=== PATIENT | female | born 1930 | race Caucasian/White ===

== ENCOUNTER 2017-12-02 13:38 | Emergency (ER) | payer MEDICARE, OTHER, MEDICAID ==
[2017-12-02] MEDS ORDERED: Propofol 200 MG/20 ML SDV IV ONE (13:39)
[2017-12-02] MEDS ORDERED: fentaNYL 100 MCG/2 ML SDV IVPUSH ONE (14:04)
--- NOTE | 2017-12-02 14:39 | CR ---
Clinical history: 87-year-old female fracture/dislocation left shoulder ( post reduction image emerge ncy department). Interpretation: Single AP film demonstrates satisfactory reduction humeral head relative to the gleno id of the left scapula. (associated evidence of impacted but anatomically aligned subcapital fracture this single projection) No sign of post reduction A/C separation or other fracture left shoulder.
--- NOTE | 2017-12-02 14:51 | EDM.PDOC ---
<Gypsy Ahmadi - Last Filed: 12/02/17 15:59> ED HPI GENERAL MEDICAL PROBLEM - General Stated Complaint: DISLOCATION OF LEFT SHOULDER Time Seen by Provider: 12/02/17 13:45 Source of Information: Reports: Patient, Family, Halfway Records, RN, RN Notes Reviewed - History of Present Illness INITIAL COMMENTS - FREE TEXT/NARRATIVE: Iraida is an 87 yo F who presents to the ED from x-ray due to a fall at the group home. We were called per Dr Lin at the group home after images where obtained revealing a left anterior shoulder dislocation. Patient relates that she was getting up to the bathroom when she tripped and fell landing on right shoulder. Patient denies hitting her head. Denies neck pain, chest pain, shortness of breath, dizziness, abd pain or any other injuries. - Related Data Allergies Allergy/AdvReac Type Severity Reaction Status Date / Time hydrochlorothiazide AdvReac Unknown Insomnia Verified 01/10/16 09:52 [From Maxzide] Qebacks-Jkg-Aqo Reductase AdvReac Unknown Muscle Verified 01/10/16 09:52 Inhibitor Aches triamterene [From Maxzide] AdvReac Unknown Insomnia Verified 01/10/16 09:52 Home Meds: Home Meds Multivit with Calcium,Iron,Min [Essential Daily] 1 each PO DAILY 08/31/13 [ History] Ondansetron [Zofran] 8 mg PO Q8H PRN 08/31/13 [History] Aspirin [Low Dose Aspirin EC] 81 mg PO DAILY 05/04/14 [History] Furosemide [Lasix] 20 mg PO DAILY 04/06/15 [History] Warfarin [Coumadin] 4 mg PO Q48H 04/06/15 [History] Acetaminophen [Acetaminophen ER] 650 mg PO TID 01/10/16 [History] Cholecalciferol (Vitamin D3) [Vitamin D3] 1,000 unit PO DAILY 01/10/16 [History] Ciprofloxacin HCl [Cipro] 250 mg PO BID 01/10/16 [History] Doxepin [SINEquan] 10 mg PO BEDTIME 01/10/16 [History] Levothyroxine [Synthroid] 50 mcg PO ACBREAKFAST 01/10/16 [History] Pantoprazole [ProTONIX] 40 mg PO ACBREAKFAST 04/28/16 [History] Warfarin [Coumadin] 2 mg PO Q48H 01/10/16 [History] Bisacodyl [Dulcolax] 10 mg RECTAL DAILY PRN #5 supp 01/11/16 [Rx] Lactulose 10 gm PO DAILY #60 ml 01/11/16 [Rx] Past Medical History HEENT History: Reports: Impaired Vision Cardiovascular History: Reports: Afib, Blood Clots/VTE/DVT, High Cholesterol, Hypertension, Other (See Below) Other Cardiovascular History: vasovagal episode Other Respiratory History: pulmonary nodules Gastrointestinal History: Reports: Diverticulosis, Other (See Below) Other Gastrointestinal History: presbysophagus,diverticulitis Genitourinary History: Reports: None [employer] History: Reports: Musculoskeletal History: Reports: Osteoporosis Other Musculoskeletal History: trochanteric bursitis Neurological History: Reports: None, TIA Psychiatric History: Reports: None Endocrine/Metabolic History: Reports: Hypothyroidism, Obesity/BMI 30+, Osteoporosis Hematologic History: Reports: None Immunologic History: Reports: None Oncologic (Cancer) History: Reports: Breast Dermatologic History: Reports: None - Past Surgical History Female Surgical History: Reports: Hysterectomy, Mastectomy, Other (See Below) Oncologic Surgical History: Reports: Biopsy of Breast, Lumpectomy, Mastectomy Social & Family History - Family History Family Medical History: Noncontributory - Tobacco Use Smoking Status *Q: Never Smoker Second Hand Smoke Exposure: Yes - Alcohol Use Days Per Week of Alcohol Use: 0 - Recreational Drug Use Recreational Drug Use: No - Living Situation & Occupation Living situation: Reports: , with Spouse Occupation: Retired Review of Systems - Review of Systems Review Of Systems: ROS reveals no pertinent complaints other than HPI. ED EXAM, GENERAL - Physical Exam Exam: See Below Exam Limited By: No Limitations General Appearance: Alert, WD/WN, No Apparent Distress Eye Exam: Bilateral Eye: EOMI, PERRL Ears: Normal External Exam, Normal Canal, Hearing Grossly Normal, Normal TMs Ear Exam: Bilateral Ear: Auricle Normal, Canal Normal, TM normal Nose: Normal Inspection, Normal Mucosa, No Blood Throat/Mouth: Normal Inspection, Normal Lips, Normal Teeth, Normal Gums, Normal Oropharynx, Normal Voice, No Airway Compromise Head: Atraumatic, Normocephalic Neck: Normal Inspection, Supple, Non-Tender, Full Range of Motion Respiratory/Chest: No Respiratory Distress, Lungs Clear, Normal Breath Sounds, No Accessory Muscle Use, Chest Non-Tender Cardiovascular: Normal Peripheral Pulses, Regular Rate, Rhythm, No Edema, No Gallop, No JVD, No Murmur, No Rub Peripheral Pulses: 2+: Radial (R) GI/Abdominal: Normal Bowel Sounds, Soft, Non-Tender, No Organomegaly, No Distention, No Abnormal Bruit, No Mass (Female) Exam: Deferred Rectal (Female) Exam: Deferred Back Exam: Normal Inspection, Full Range of Motion, NT Extremities: Arm Pain (Patient has an obvious dislocation to left shoulder. Hand is discolored on arrival. Strong radial and ulnar pulses present. Mild numbness to fingers per patient report. ) Course - Orders/Labs/Meds Labs: Laboratory Tests 12/02/17 12/02/17 12/02/17 Range/Units 14:45 14:45 14:45 WBC 11.9 H (5.0-10.0) 10^3/uL RBC 4.13 L (4.2-5.4) 10^6/uL Hgb 12.4 (12.0-16.0) g/dL Hct 39.1 (37.0-47.0) % MCV 94.7 D (80-100) fL MCH 30.0 (27.0-34.0) pg MCHC 31.7 L (33.0-35.0) g/dL Plt Count 233 (150-450) 10^3/uL Neut % (Auto) 72.1 (42.2-75.2) % Lymph % (Auto) 19.1 L (20.5-50.1) % Davidson % (Auto) 8.3 H (2-8) % Eos % (Auto) 0.3 L (1.0-3.0) % Baso % (Auto) 0.2 (0.0-1.0) % PT 18.8 H D (9.0-12.0) SEC INR 1.9 H (0.9-1.2) Sodium 139 (135-145) mmol/L Potassium 3.6 (3.6-5.0) mmol/L Chloride 97 L (101-111) mmol/L Carbon Dioxide 33.0 H (21.0-31.0) mmol/L Anion Gap 12.6 BUN 22 H (7-18) mg/dL Creatinine 0.8 (0.6-1.3) mg/dL Est Cr Clr Drug Dosing TNP Estimated GFR (MDRD) > 60 BUN/Creatinine Ratio 27.50 Glucose 98 (74-105) mg/dL Calcium 9.1 (8.4-10.2) mg/dl Total Bilirubin 0.7 (0.2-1.0) mg/dL AST 32 (10-42) IU/L ALT 16 (10-60) IU/L Alkaline Phosphatase 42 (42-121) IU/L Total Protein 6.5 L (6.7-8.2) g/dl Albumin 3.7 (3.2-5.5) g/dl Globulin 2.8 Albumin/Globulin Ratio 1.32 Meds: Medications Discontinued Medications Generic Name Dose Route Start Last Admin Trade Name Freq PRN Reason Stop Dose Admin Fentanyl 50 mcg 12/02/17 14:04 12/02/17 14:10 Sublimaze IVPUSH 12/02/17 14:05 50 mcg ONETIME ONE Administration - Re-Assessments/Exams Free Text/Narrative Re-Assessment/Exam: 12/02/17 15:59 1430: Post reduction: xray completed to verify placement. Color to left hand has improved and is warm dry and pink. Patient placed in a shoulder immobilizer post reduction. Numbness to hand has resolved per patient report. Pulse both radial and ulnar strong. Capillary refill less than two seconds. Departure - Departure Time of Disposition: 15:48 Condition: Good Clinical Impression: Dislocation of left shoulder joint Qualifiers: Encounter type: initial encounter Qualified Code(s): S43.005A - Unspecified dislocation of left shoulder joint, initial encounter Proximal humerus fracture Qualifiers: Encounter type: initial encounter Fracture type: closed Fracture morphology: other fracture Fracture alignment: nondisplaced Laterality: left Qualified Code( s): S42.295A - Other nondisplaced fracture of upper end of left humerus, initial encounter for closed fracture - Discharge Information Instructions: Humerus Fracture Treated With Immobilization, [id number], Shoulder Dislocation Referrals: Mary Lin MD [Primary Care Provider] - Forms: ED Department Discharge Care Plan Goals: Use immobilizer until further direction after follow-up. Dr Lin has agreed to arrange follow-up regarding follow-up and will further manage pain control at the group home. Do not lift left arm above head. Patient and daughter verbalizes understanding. Deny any further questions or concerns at this time. Accompanied student during assessment, treatment and plan. Agree with plan. <Rashda Weems - Last Filed: 12/02/17 16:05> ED TRAUMA EXTREMITY PROCEDURES - Joint Reduction Site: Shoulder (L) Sedation: Conscious Sedation Pre-Procedure NV Status: Normal Post-Procedure NV Status: Normal Technique: Traction/Counter Traction Number of Attempts: 1 Post-Reduction Imaging: Completely Reduced, Fracture Seen Joint Reduction Complications: No Course - Re-Assessments/Exams Free Text/Narrative Re-Assessment/Exam: 12/02/17 15:30 This 87 yo female patient was sent to the ED from Radiology due to a ground level fall while at the [facility]. The patient denies loss of consciousness before, during or after the fall. The patient reports pain in her left shoulder. The patient was initially sent to [facility] in [place] for x-rays of her shoulder, but sent to the ED due to a fracture/dislocation of the left shoulder. Since the patient is on Coumadin, the patient is considered a trauma patient. Primary Survey: The patient was alert and oriented at the time of the visit. The patient reports only pain in her left shoulder. The patient's airway is open, breathing is normal with minimal effort, and there is no obvious bleeding. The patient does have some deformity to her left shoulder due to the anterior dislocation/ fracture identified by x-ray prior to reporting to the ED. The patient's left arm was discolored upon arrival (purple). The patient GCS was 15 upon arrival, before anesthesia and after recovery. Anesthesia was called to do conscious sedation for left shoulder reduction. Secondary Survey Head: Normocephalic, atraumatic Eyes: Pupils equal, round and reactive to light Ears: External examination is normal, canals are clear, TM's normal with good cone of light Nose: Mucosa is pink with scant clear discharge Mouth: Atraumatic, no exudates, transudates or pustules. Neck: Subtle, normal range of motion Chest: Atraumatic, lung sounds are clear and equal bilaterally Abdomen: Soft, non-tender, no organomegally Pelvis: Stable Extremities: Left upper extremity deformity at the shoulder with discoloration prior to reduction. Pulse was present and strong both before and after reduction. Other extremities CMS was intact with no abnormalities. Lower extremities had compression garments in place. Conscious sedation was achieved without incident. The left shoulder was reduced with minimal effort on 1 attempt. The patient's left arm was placed in a shoulder support. Post reduction x-ray demonstrated that the shoulder was completely reduced. The patient was given Fentanyl for pain prior to reduction. CMS was intact after the patient recovered from reduction.
[2017-12-02 15:11] LABS: CHLORIDE,CL 97 mmol/L (101-111); SODIUM,NA 139 mmol/L (135-145)
== END 2017-12-02 16:13 | disposition home or self-care (01) ==
LOC: DL.ED 13:38
DX: S42.295A Other nondisplaced fracture of upper end of left humerus, initial encounter for closed fracture (principal); I48.91 Unspecified atrial fibrillation; E78.00 Pure hypercholesterolemia, unspecified; I10 Essential (primary) hypertension; E66.9 Obesity, unspecified; E03.9 Hypothyroidism, unspecified; Z79.899 Other long term (current) drug therapy; Z79.82 Long term (current) use of aspirin; Z79.01 Long term (current) use of anticoagulants; Z88.8 Allergy status to other drugs, medicaments and biological substances; W01.0XXA Fall on same level from slipping, tripping and stumbling without subsequent striking against object, initial encounter
CPT/HCPCS: 01620; 23650; 36415; 73020; 73030; 80053; 85025; 85610; 99152; 99283; 99291; 99292; J2704; J3010